=== PATIENT | male | born 1965 | race Caucasian/White ===

== ENCOUNTER 2016-12-21 12:55 | Emergency (ER) | payer MEDICARE, OTHER ==
[2016-12-21] MEDS ORDERED: Ketorolac Tromethamine 60 MG/2 ML VIAL ONE (13:21)
--- NOTE | 2016-12-21 14:04 | PICIS ---
[facility] EMERGENCY RECORD TRIAGE (12:59 KMOR) TRIAGE NOTES: CHRONIC PAIN ALL OVER, OUT OF PAIN MEDS SINCE THU. (12:59 KMOR) PATIENT: AGE: 51, GENDER: male, : Thu1965, TIME OF GREET: Sun Dec 21, 2016 12:55, PREFERRED LANGUAGE: Spanish, ETHNICITY: Not or , ECODE BILLING MAP: [place], SSN: [id number], Zip Code: [address], KG WEIGHT: 93.44, PHONE: , , , PERSON ID: [id number], PAYMENT: [employer], PCP: RONNIE. (12:59 KMOR) NAME: Morgan Low (13:11) COMPLAINT: PAIN ALL OVER. (12:59 KMOR) ADMISSION: URGENCY: 4 Non Urgent, ADMISSION SOURCE: Home, TRANSPORT: CAR, BED: ER -02. (12:59 KMOR) ASSESSMENT: Assessment: A&OX4. RR EVEN AND UNLABORED. (13:04 KMOR) PAIN: Patient complains of pain described as, aching, on a scale 0-10 patient rates pain as 10, Location BACK. (13:04 KMOR) SIRS SCORING: Heart Rate 55-109 (0), Temp range 96.8-101.1 (0), respiratory rate 12-24 (0), Mental Status altered: no (0), Infection or Suspected Infection: No. (13:04 KMOR) TRIAGE SCREENING: Patient denies suicidal ideation, Patient denies presence of domestic violence. (13:04 KMOR) PROVIDERS: TRIAGE NURSE: Chayito Hernandez RN. (12:59 KMOR) VITAL SIGNS: BP 156/104, Pulse 79, Resp 18, Temp 97.7, (Oral), Pain 10, O2 Sat 98, on Room Air, Time 12/21/2016 12:59. (12:59 KMOR) PREVIOUS VISIT ALLERGIES: No Known Drug Allergies. (12:59 KMOR) No Known Drug Allergies. (13:04 KMOR) No Known Drug Allergies. (13:05 RHIC) KNOWN ALLERGIES No Known Drug Allergies CURRENT MEDICATIONS omeprazole: CAPSULE,DELAYED RELEASE (ENTERIC COATED) : Strength - 20 mg : ORAL Patient Dose: 40 mg Oral 2 times a day. (13:06 RHIC) Duexis: TABLET : Strength - 800 mg-26.6 mg : ORAL Patient Dose: 1 tab(s) Oral every 12 hours. (13:07 RHIC) gabapentin: CAPSULE : Strength - 300 mg : ORAL Patient Dose: 600 mg Oral 3 times a day. (13:07 RHIC) traMADol: TABLET : Strength - 50 mg : ORAL Patient Dose: 50 mg Oral every 6 hours PRN. (13:08 RHIC) furosemide: TABLET : Strength - 20 mg : ORAL Patient Dose: Unknown. (13:08 RHIC) &a-1R&a+25V*p+0X*[id number]*c202B*c15G*c2P*p-0X&a-25V&a+1R Name: Morgan Low : 1965 M51 MedRec: [id number] AcctNum: [id number] Prepared: Thalia Dec 21, 2016 13:58 by Interface Page 1 of 5 pMD [facility] EMERGENCY RECORD amLODIPine: TABLET : Strength - 5 mg : ORAL Patient Dose: 10 mg Oral once a day. (13:09 RHIC) [place]: TABLET : Strength - 10 mg-325 mg : ORAL Patient Dose: 1 tab(s) Oral every 4 hours prn. (13:09 RHIC) morphine: TABLET, EXTENDED RELEASE : Strength - 30 mg : ORAL Patient Dose: Unknown. (13:11 RHIC) VITAL SIGNS (12:59 KMOR) VITAL SIGNS: BP: 156/104, Pulse: 79, Resp: 18, Temp: 97.7 (Oral), Pain: 10, O2 sat: 98 on Room Air, Time: 12/21/2016 12:59. NURSING ASSESSMENT: HEAD-TO-TOE CONSTITUTIONAL: Patient arrives ambulatory, Unsteady gait, with crutch, History obtained from patient, Patient appears comfortable, Patient cooperative, Patient alert, Oriented to person, place and time, Skin warm, Skin dry, Skin normal in color, Patient, poorly groomed, with poor personal hygiene. (13:27 RHIC) PAIN: on a scale 0-10 patient rates pain as 10, PATIENT STATES HIS PAIN IS A 10 OUT OF 10. 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 (13:27 RHIC) RESPIRATORY/CHEST: Respiratory assessment findings include respiratory effort easy, Conversing normally, Chest expansion equal, no signs of distress. (13:27 RHIC) CARDIOVASCULAR: Cardiovascular assessment findings include heart rate normal. (13:27 RHIC) ABDOMEN: Abdomen assessment findings include abdomen symmetrical, no associated nausea, no associated vomiting. (13:27 RHIC) NOTES: Notes: PATIENT CONSTANTLY INTERUPTS, ARGUMENTATIVE, DRUG SEEKING BEHAVIOR. (13:00 RHIC) NURSING PROCEDURE: DISCHARGE NOTE (13:48 RHIC) DISCHARGE: Patient discharged to, LEFT P/T DC WRITTEN DC TEACHING, ambulating without assistance, driving self, unaccompanied. SAFETY: Notes: PT WALKED OUT OF ER WITHOUT DISCHARGE TEACHING. MED WAIT WAS COMPLETE. NURSING PROCEDURE: NURSE NOTES (13:30 RHIC) NURSES NOTES: Notes: PATIENT IS OUT OF HIS MORPHINE AND HIS HYDROCODONE. BOTH MEDICATIONS WERE FILLED ON THE 4TH. HE STATES HE HAS BEEN OUT FOR OVER A WEEK. PAPERWORK FROM PAIN CLINIC SHOWS HE HAS TEST POSITIVE FOR MEDICATIONS THAT WERE NOT PRESCRIBED TO HIM. PATIENT STATES HE ALSO WEARS A PAIN PATCH. STATES HE WAS FIRED BY THE PAIN MANAGMENT CLINIC AND HIS PRIMARY MD WILL NOT GIVE HIM THE PAIN MEDICATION EITHER. ALL NON-NARCOTIC PAIN MEDICATIONS ARE CLOSE TO FULL. &a-1R&a+25V*p+0X*[id number]*c202B*c15G*c2P*p-0X&a-25V&a+1R Name: [place] : 1965 M51 MedRec: [id number] AcctNum: [id number] Prepared: Thalia Dec 21, 2016 13:58 by Interface Page 2 of 5 pMD [facility] EMERGENCY RECORD MEDICATION ADMINISTRATION SUMMARY Drug Name: Toradol intramuscular, Dose Ordered: 60 mg, Route: Intramuscular, Status: Given, Time: 13:20 12/21/2016, Detailed record available in Medication Service section. MEDICATION SERVICE (13:20 [facility]) Toradol intramuscular: Order: Toradol intramuscular (ketorolac tromethamine) - Dose: 60 mg : Intramuscular POTENTIAL CONTRAINDICATED INTERACTION: Duexis - Benefits outweigh risks Schedule: Now Ordered by: Ryan Fernando DO Entered by: DO Thalia Lakhani Dec 21, 2016 13:19 , Acknowledged by: EUGENE Pagan Dec 21, 2016 13:20 Documented as given by: EUGENE Pagan Dec 21, 2016 13:20 Patient, Medication, Dose, Route and Time verified prior to administration. IM medication, Medication administered to left buttock, Correct patient, time, route, dose and medication confirmed prior to administration, Patient advised of actions and side-effects prior to administration, Allergies confirmed and medications reviewed prior to administration, Patient in position of comfort, Side rails up, Cart in lowest position. HPI GENERAL (13:35 JPIP) CHIEF COMPLAINT: Patient presents for evaluation of CO Generalized pain and is out of his pain medications. HISTORIAN: History provided by patient. MECHANISM OF INJURY: Unknown mechanism, Mechanism of injury: chronic pain syndrome. LOCATION: Symptoms are generalized. QUALITY: Pain is dull in nature. SEVERITY: Current severity of pain rated as 10/10. TIME COURSE: There has been no change in the patient's symptoms over time, chronic pain. ASSOCIATED WITH: Associated with out of narcotic pain medications. EXACERBATED BY: Patient's condition exacerbated by nothing. RELIEVED BY: Patient's condition relieved by nothing. ROS (13:37 JPIP) CONSTITUTIONAL: Historian denies chills, denies fever. CARDIOVASCULAR: Historian denies chest pain. RESPIRATORY: Historian denies cough, denies shortness of breath. GI: Historian denies nausea, denies vomiting. MUSCULOSKELETAL: Historian reports arthralgias, reports myalgias. SKIN: Historian denies rash, denies skin changes, denies skin &a-1R&a+25V*p+0X*[id number]*c202B*c15G*c2P*p-0X&a-25V&a+1R Name: Morgan Low : 1965 M51 MedRec: [id number] AcctNum: [id number] Prepared: Thalia Dec 21, 2016 13:58 by Interface Page 3 of 5 pMD [facility] EMERGENCY RECORD lesions. NEUROLOGIC: Historian denies confusion, denies dizziness, denies lethargy, denies mental status changes. NOTES: All systems reviewed, negative except as described above. PAST MEDICAL HISTORY MEDICAL HISTORY: Notes: CHRONIC PAIN TO LOWER BACK,, Past medical history includes gastrointestinal disease, gastroesophageal reflux disease, Past medical history includes history of hypertension. (13:04 KMOR) Notes: CHRONIC PAIN TO LOWER BACK,, Past medical history includes gastrointestinal disease, gastroesophageal reflux disease, Past medical history includes history of hypertension. (13:05 RHIC) MALE SURGICAL HISTORY: BACK SURGERY, PELVIC SURGERY, LT LEG SURGERY LEFT INDEX FINGER AMBUTATION, LEFT SECOND TOE AMBUTATION. (13:04 KMOR) BACK SURGERY, PELVIC SURGERY, LT LEG SURGERY LEFT INDEX FINGER AMBUTATION, LEFT SECOND TOE AMBUTATION . (13:05 RHIC) PSYCHIATRIC HISTORY: No previous psychiatric history. (13:04 KMOR) No previous psychiatric history. (13:05 RHIC) SOCIAL HISTORY: Patient denies alcohol use, Patient denies drug use, Patient currently uses tobacco, smokes cigarettes, daily, Patient has smoked for 30 years, Patient smokes 1 pack per day. (13:04 KMOR) Patient denies alcohol use, Patient denies drug use, Patient currently uses tobacco, smokes cigarettes, daily, Patient has smoked for 30 years, Patient smokes 1 pack per day. (13:05 RHIC) NOTES: Nursing records reviewed, Old chart reviewed, Medication list reviewed. (13:39 JPIP) PHYSICAL EXAM (13:38 JPIP) CONSTITUTIONAL: Vital signs reviewed, Patient afebrile, Pulse normal, Blood pressure, hypertensive, Respiratory rate normal, Patient appears, poorly groomed, Patient alert and oriented to person, place and time. HEAD: Head exam included findings of head atraumatic, normocephalic. EYES: Eye exam included findings of eyelids normal to inspection, Conjunctiva normal, Sclera normal, no periorbital ecchymosis, no periorbital edema, no periorbital erythema. NECK: Neck exam included findings of normal range of motion. RESPIRATORY CHEST: Respiratory exam included findings of no respiratory distress. BACK: Range of motion, limited by pain. UPPER EXTREMITY: Upper extremity exam included findings of inspection normal, Range of motion normal. LOWER EXTREMITY: Range of motion. NEURO: [place] coma scale 15, Neuro exam findings include patient oriented to person, place and time, Speech normal, no focal motor &a-1R&a+25V*p+0X*[id number]*c202B*c15G*c2P*p-0X&a-25V&a+1R Name: Morgan Low : 1965 M51 MedRec: [id number] AcctNum: [id number] Prepared: Thalia Dec 21, 2016 13:58 by Interface Page 4 of 5 pMD [facility] EMERGENCY RECORD deficits. SKIN: Skin exam included findings of skin warm, dry, and normal in color. PSYCHIATRIC: Psychiatric exam included findings of patient oriented to person place and time, Normal affect. EVENTS TRANSFER: Triage to Emergency Emergency Room -02. (Thalia Dec 21, 2016 12:59 KMOR) Removed from Emergency Emergency Room -02. (13:53 RHIC) DOCTOR NOTES (13:39 JPIP) TEXT: Patient presented paperwork from his pain management Physician. He has failed his urine drug screen and has been fired from pain management. Advised patient to see his PCP for either management of his pain or referral to another pain management Physician. Advised I do not manage chronic pain and do not refill narcotic prescriptions. PROBLEM LIST No recorded problems DIAGNOSIS (13:19 JPIP) FINAL: PRIMARY: CHRONIC PAIN SYNDROME. DISPOSITION PATIENT: Disposition Type: Discharge, Disposition: *Discharge Home, Condition: Good. (13:19 JPIP) Patient left the department. (13:53 RHIC) PRESCRIPTION No recorded prescriptions Green: JPIP=DO Fernando Joseph KMOR=EUGENE Hernandez, Chayito RHIC=EUGENE Cisneros, Sandra &a-1R&a+25V*p+0X*[id number]*c202B*c15G*c2P*p-0X&a-25V&a+1R Name: Morgan Low : 1965 M51 MedRec: [id number] AcctNum: [id number] Prepared: Thalia Dec 21, 2016 13:58 by Interface Page 5 of 5 pMD MTDD
== END 2016-12-21 12:59 | disposition home or self-care (01) ==
LOC: BURERS 12:55
DX: G89.4 Chronic pain syndrome (principal); K21.9 Gastro-esophageal reflux disease without esophagitis; I10 Essential (primary) hypertension; F17.210 Nicotine dependence, cigarettes, uncomplicated
CPT/HCPCS: 96372; J1885